=== PATIENT | male | born 1970 | race Caucasian/White ===

== ENCOUNTER 2023-06-04 15:06 | Emergency (ER) | payer SELFPAY ==
[~2023-06-04] VITALS: Ht 177.8 cm; Wt 80.3 kg
[2023-06-04 15:15] VITALS: BP 149/80; PULSE 95; RESP 22; TEMP 99.7; O2SAT 98
[2023-06-04] MEDS ORDERED: IBUP-2213 PO (15:58)
[2023-06-04] MEDS ORDERED: MELA10CA PO (15:58)
[2023-06-04] MEDS ORDERED: AMOX500C25 PO (15:58)
[2023-06-04 16:07] VITALS: BP 149/80; PULSE 95; RESP 22; TEMP 99.7; O2SAT 98
[2023-06-04 18:16] LABS: FLU A ANTIGEN negative (NEGATIVE); FLU B ANTIGEN NEGATIVE (NEGATIVE)
== END 2023-06-04 16:10 | disposition home or self-care (01) ==
LOC: MED 15:06
DX: R50.9 Fever, unspecified (principal); Z20.822 Contact with and (suspected) exposure to COVID-19; R51.9 Headache, unspecified; M54.50 Low back pain, unspecified; Z79.899 Other long term (current) drug therapy
CPT/HCPCS: 71045; 99284